=== PATIENT | female | born 1955 | race Caucasian/White ===

== ENCOUNTER → 2016-09-19 | Outpatient (CLI) | payer OTHER ==
[~2016-09-19] MED LIST: ACCUNEB0.63 MG/3; ADVAIR 250-501 EACH INH; ADVAIR 500-501 EACH IH; ADVAIRDISKUS; AZITHROMYCIN 2250 MG PO; BENICAR; BONIVA150 MG PO; CARDURA2 MG PO; CELEXA 20 MG TA20 MG PO; CITRACAL + BON1 EACH PO; DIVIGEL0.25 MG TD; ESTRACE1 MG PO; HYDROCODON-ACE1 EAC7; KEFLEX500 MG PO; LEVAQUIN 500 M500 M1 PO; LEVAQUIN 500 M500 M2 PO; LEXAPRO; MICARDIS HCT 81 EACH PO; NORCO 5-325 TA1 EACH PO; PREDNISONE 10 M10 M1 PO; PREDNISONE 20 M20 M1; PROAIR HFA8.5 GM INH; REFRESH OPTIVE10 ML OPHTHALMIC; REQUIP0.5 MG PO; SYNTHROID PO; SYNTHROID88 MCG PO; TESSALON PERLE100 MG; TRICOR; TRIGLIDE160 M1 PO; XOPENEX 0.63 MG/3 M1 INH
== END ==
LOC: RAD 08:59
DX: I77.819 Aortic ectasia, unspecified site (principal); M47.894 Other spondylosis, thoracic region; R06.00 Dyspnea, unspecified

== ENCOUNTER → 2019-12-22 | Outpatient (CLI) | payer OTHER | LOC: RAD 09:21 | PROVIDERS: ATTEND Pediatrics | DX: R06.02 Shortness of breath (principal) ==

== ENCOUNTER → 2020-10-26 | Outpatient (CLI) | payer OTHER ==
[~2020-10-26] MED LIST changes: +FLONASE 0.05%50 MCG NASAL; +MICARDIS 80 MG80 MG PO; +REQUIP 1 MG TABL1 M1 PO; -REQUIP0.5 MG PO; +ROSUVASTATIN CA10 MG PO; +SINGULAIR 10 MG10 MG PO; +SPIRIVA RESPIMAT4 G1 INH; +SYMBICORT160 MCG/4. INH; +SYNTHROID88 MC1 PO; +TOPROL XL25 MG PO; +TRAZODONE HCL100 MG PO; +VIIBRYD40 MG PO
== END ==
LOC: SJCVC 10:15
PROVIDERS: ATTEND Internal Medicine
DX: I44.0 Atrioventricular block, first degree (principal); R00.1 Bradycardia, unspecified; E78.5 Hyperlipidemia, unspecified; I10 Essential (primary) hypertension; G47.33 Obstructive sleep apnea (adult) (pediatric); Q21.0 Ventricular septal defect; E03.9 Hypothyroidism, unspecified; Z82.49 Family history of ischemic heart disease and other diseases of the circulatory system; Z79.899 Other long term (current) drug therapy